=== PATIENT | male | born 1965 | race Two or more races ===

== ENCOUNTER → 2025-04-20 | Day surgery (SDC) | payer MEDICAID ==
[~2025-04-20] VITALS: Ht 170.2 cm; Wt 81.6 kg
[~2025-04-20] MED LIST: AMIO200T33 PO; ASPI1TAB19 PO; FINA5TAB4 PO; HEPARIN SODIUM (PORCINE) 5000 UNITS/ML 1ML VIAL ONE; INSU100I47 SC; INSU1INJ19 SC; IODIXANOL 320MG/ML 100ML BTL IV ONE; LEVO500T91 PO; NITROGLYCERIN 50MG/250ML 250 ML IV ONE; PARO-135 PO; SIMV20TA20 PO; TAMS0.4C39 PO; VERAPAMIL 2.5MG/ML INJ 2ML VIAL IV ONE
== END | disposition home or self-care (01) ==
LOC: CATH 06:40
PROVIDERS: ATTEND Internal Medicine
DX: I25.10 Atherosclerotic heart disease of native coronary artery without angina pectoris (principal); Z53.8 Procedure and treatment not carried out for other reasons; Z79.82 Long term (current) use of aspirin; Z79.84 Long term (current) use of oral hypoglycemic drugs; Z79.899 Other long term (current) drug therapy; Z88.0 Allergy status to penicillin; Z88.8 Allergy status to other drugs, medicaments and biological substances
CPT/HCPCS: Q9967

== ENCOUNTER 2025-06-01 08:12 | Outpatient (CLI) | payer MEDICAID ==
[~2025-06-01] VITALS: Ht 30.5 cm; Wt 0.5 kg
[~2025-06-01 08:12] MED LIST changes: -HEPARIN SODIUM (PORCINE) 5000 UNITS/ML 1ML VIAL ONE; -IODIXANOL 320MG/ML 100ML BTL IV ONE; -NITROGLYCERIN 50MG/250ML 250 ML IV ONE; -VERAPAMIL 2.5MG/ML INJ 2ML VIAL IV ONE
[2025-06-01] MEDS ORDERED: LIDOCAINE 2%HCL (LOCAL ANESTH.) INJ 10ml MDV ONE (08:38)
[2025-06-01] MEDS ORDERED: fentaNYL CITRATE 100 MCG/2 ML VL IV ONE (08:45)
[2025-06-01] MEDS ORDERED: MIDAZOLAM HCL 2MG/2ML 2ml VIAL (1mg/ml) IV ONE (08:45)
== END 2025-06-01 17:00 | disposition home or self-care (01) ==
LOC: CT 08:12
DX: M75.92 Shoulder lesion, unspecified, left shoulder (principal); Z53.8 Procedure and treatment not carried out for other reasons; N40.2 Nodular prostate without lower urinary tract symptoms; E11.22 Type 2 diabetes mellitus with diabetic chronic kidney disease; E11.69 Type 2 diabetes mellitus with other specified complication; N18.4 Chronic kidney disease, stage 4 (severe); R63.4 Abnormal weight loss; Z68.1 Body mass index [BMI] 19.9 or less, adult; Z88.0 Allergy status to penicillin; Z88.8 Allergy status to other drugs, medicaments and biological substances
CPT/HCPCS: J2003

== ENCOUNTER 2025-06-14 08:57 | Outpatient (CLI) | payer MEDICAID ==
[2025-06-14] MEDS ORDERED: LIDOCAINE 2%HCL (LOCAL ANESTH.) INJ 10ml MDV ONE (09:05)
[2025-06-14] MEDS ORDERED: fentaNYL CITRATE 100 MCG/2 ML VL IV ONE (09:15)
[2025-06-14] MEDS ORDERED: MIDAZOLAM HCL 2MG/2ML 2ml VIAL (1mg/ml) IV ONE (09:15)
[2025-06-14] MEDS ORDERED: MIDAZOLAM HCL 2MG/2ML 2ml VIAL (1mg/ml) ONE (09:24)
[2025-06-14] MEDS ORDERED: fentaNYL CITRATE 100 MCG/2 ML VL ONE (09:24)
--- NOTE | 2025-06-14 10:51 | DVH ---
CT UPPER EXTREMITY WO CONTRAST HISTORY: LEFT SHOULDER LESION COMPARISON: None PROCEDURE: Informed consent and time-out was performed before the procedure. Conscious sedation was p erformed by the interventional radiology nurse. The left proximal humerus lytic lesion was marked, st erilized, draped, and locally anesthetized using approximately 5 ml of 1% lidocaine. Axial CT images were used for localization. A 17/18 gauge Temno biopsy device was used to take multiple core samples and placed into formalin. The biopsy needle was then removed. No immediate complications noted. FINDINGS: Axial CT images demonstrates biopsy needle within the left proximal humerus lytic bone lesion. IMPRESSION: CT-guided biopsy of the left proximal humerus lytic bone lesion. Pathology results pending.
== END 2025-06-14 17:00 | disposition home or self-care (01) ==
LOC: CT 08:57
DX: M89.8X1 Other specified disorders of bone, shoulder (principal); M89.8X2 Other specified disorders of bone, upper arm; E11.22 Type 2 diabetes mellitus with diabetic chronic kidney disease; N18.4 Chronic kidney disease, stage 4 (severe); N13.9 Obstructive and reflux uropathy, unspecified; F32.A Depression, unspecified; Z79.4 Long term (current) use of insulin; Z79.899 Other long term (current) drug therapy; Z86.2 Personal history of diseases of the blood and blood-forming organs and certain disorders involving the immune mechanism; Z98.890 Other specified postprocedural states; Z88.0 Allergy status to penicillin; Z88.8 Allergy status to other drugs, medicaments and biological substances; Z83.3 Family history of diabetes mellitus; Z84.1 Family history of disorders of kidney and ureter; Z80.8 Family history of malignant neoplasm of other organs or systems; Z82.49 Family history of ischemic heart disease and other diseases of the circulatory system
CPT/HCPCS: 20225; 77012; 88305; 88342; J2003; J2250; J3010; 10005; 73200